=== PATIENT | male | born 1980 | race Caucasian/White ===

== ENCOUNTER → 2018-10-25 | Outpatient (CLI) | payer BC ==
--- NOTE | 2018-10-25 12:12 | CONS ---
CONSULTATION DATE OF SERVICE: 10/25/2018 This 37-year-old gentleman has been evaluated in the sleep center for possible obstructive sleep apnea-hypopnea syndrome. HISTORY OF PRESENT ILLNESS/SLEEP-WAKE EVALUATION: Patient had been diagnosed with obstructive sleep apnea in about 2005. At that time was started to use the CPAP, but then for different reasons he stopped using CPAP. Presently, his sleep schedule on working days from 10 p.m. to 5:30 a.m. and on weekends from 10 p.m. to 6:45 a.m. Usually no problems with falling asleep, although he has TV set in bedroom. His sleep is different position with his with snoring and awakenings from sleep several times with dry mouth and one episode of nocturia at night. In the morning, patient feels sleepy, wakes up tired, has difficulties to pay attention, falling asleep during the day, has problems with memory, concentration, irritability, depression, anxiety. Mora Sleepiness Scale increased significantly to 13. The patient may take one nap from 11 to 12 noon, but not everyday. No vivid dreams during the naps. Usually he does not feel refreshed after naps. No history of hypnagogic hallucinations, sleep paralysis or cataplexy. PAST MEDICAL HISTORY: Positive for increasing blood pressure, but patient never was on any medications for hypertension, memory problems, mood changes, history of posttraumatic stress disorder and history of toenail fungus. PAST SURGICAL HISTORY: Appendectomy, left knee surgery for ACL. MEDICATIONS: Terbinafine. SOCIAL HISTORY: Negative for smoking. Alcohol consumption occasional. FAMILY HISTORY: Hypertension, sleep apnea. REVIEW OF SYSTEMS: Multiple awakenings from sleep, significant excessive daytime sleepiness. PHYSICAL EXAMINATION: During physical exam, gentleman without distress. VITAL SIGNS: BP 123/84, HR 52, RR 16, height 6 feet 2-1/2 inches, weight 233 pounds, body mass index 29.5, temperature 98.2, oxygen saturation at room air 100%. HEENT: PERRLA, EOMI. Oropharynx: Low position of soft palate, Mallampati 3-4. Restriction of nasal breathing on the left side. Wide neck 17-1/4 inches in circumference. NECK: Supple, no JVD. Thyroid is not palpable. LUNGS: Clear to percussion and to auscultation. Good air exchange. No wheezing or rhonchi. HEART: S1, S2 regular. No murmurs, gallops, or rubs. ABDOMEN: Soft and nontender. Bowel sounds are present. No organomegaly appreciated. EXTREMITIES: No clubbing or cyanosis. LAW INSTRUCTOR: Awake, alert, and oriented X3. Cranial nerves 2 to 7 intact. There is no fasciculation or atrophy. noted. No focal deficits observed. IMPRESSION: 1. Snoring, multiple awakenings from sleep, low position of soft palate, wide neck, restriction of nasal breathing, sleepiness, obstructive sleep apnea-hypopnea syndrome. 2. Significant excessive daytime sleepiness. Mora Sleepiness Scale increased to 13. Differential diagnosis could include hypersomnia study is negative for sleep apnea. 3. History of posttraumatic stress disorder. 4. Recent memory problems. 5. History of toenail infection. 6. Status post appendectomy. 7. Status post surgery for ACL problems on left knee. PLAN: 1. Polysomnography for evaluation of patient's breathing during sleep. 2. CPAP/BiPAP titration if sleep study confirms obstructive sleep apnea-hypopnea syndrome. 3. Preferable position during sleep on the side. 4. No driving if patient feels any sleepiness. 5. I will see patient for follow up visit to explain results of testing and following plan. Thank you very much for referring this patient for consultation. Sincerely, John Bloom MD, PhD, FAASM Diplomat of [employer] [facility] [place] MMODL / JHN: [id number] /
== END | disposition home or self-care (01) ==
LOC: SLEEP 10:16
PROVIDERS: ATTEND Internal Medicine
DX: G47.33 Obstructive sleep apnea (adult) (pediatric) (principal); Z86.59 Personal history of other mental and behavioral disorders; Z86.19 Personal history of other infectious and parasitic diseases; Z90.49 Acquired absence of other specified parts of digestive tract; Z98.890 Other specified postprocedural states; Z88.3 Allergy status to other anti-infective agents
CPT/HCPCS: 99211

== ENCOUNTER → 2019-12-26 | Outpatient (CLI) | payer BC ==
--- NOTE | 2019-12-26 09:38 | FL ---
Barium swallow HISTORY: Dysphasia and gastroesophageal reflux disease Patient was given high density barium to drink. Evaluation performed under real-time fluoroscopy. 14 images obtained. 1 minute 59 seconds fluoroscopy time The swallowing mechanism is normal. There is no extrinsic or intrinsic esophageal lesion. No hiatal h ernia or gastroesophageal reflux was identified. Questionable posterior impression on the esophagus s een at the thoracic inlet level did not persist. IMPRESSION: Normal barium swallow.
== END | disposition home or self-care (01) ==
LOC: RADUSWWP 07:55
PROVIDERS: ATTEND Otolaryngology
DX: K21.0 Gastro-esophageal reflux disease with esophagitis (principal)
CPT/HCPCS: 74220

== ENCOUNTER → 2024-05-06 | Outpatient (CLI) | payer BC ==
--- NOTE | 2024-05-06 10:47 | XR ---
EXAMINATION TYPE: XR ankle limited bilateral DATE OF EXAM: 05/06/2024 COMPARISON: NONE CLINICAL INDICATION: Male, 43 years old with history of [id number] DJD BHARATH KNEE; TECHNIQUE: 2 views bilateral ankle FINDINGS: Ankle mortise symmetric bilaterally. Osseous structures intact. Pes planus deformity bilate rally. No erosive changes. IMPRESSION: Ankle joint is maintained. [facility], , 05/06/2024 10:45 AM
--- NOTE | 2024-05-06 10:48 | XR ---
EXAMINATION TYPE: XR knee 4V bilateral DATE OF EXAM: 05/06/2024 COMPARISON: NONE CLINICAL INDICATION: Male, 43 years old with history of [id number] DJD BHARATH KNEE; TECHNIQUE: Three views are submitted. FINDINGS: Postsurgical changes suggestive of prior ACL repair. Mild tricompartment osteoarthritis. Small suprap atellar bursal fluid collection. No acute fracture. Mild generalized demineralization. IMPRESSION: 1. Postoperative change with small suprapatellar bursal fluid collection. 2. Mild osteoarthritis. [facility], , 05/06/2024 10:46 AM
--- NOTE | 2024-05-06 10:49 | XR ---
EXAMINATION TYPE: XR pelvis AP view DATE OF EXAM: 05/06/2024 COMPARISON: NONE CLINICAL INDICATION: Male, 43 years old with history of [id number] DJD BHARATH KNEE; The osseous structures are intact. No acute fracture is seen. Visualized bowel gas pattern is nonspe cific. Mild hypertrophic hip arthropathy. IMPRESSION: 1. Mild hypertrophic hip arthropathy. [facility], , 05/06/2024 10:47 AM
== END | disposition home or self-care (01) ==
LOC: RADXRYALE 09:26
PROVIDERS: ATTEND Chiropractor
DX: M25.861 Other specified joint disorders, right knee (principal); M25.862 Other specified joint disorders, left knee; M17.0 Bilateral primary osteoarthritis of knee
CPT/HCPCS: 72170